=== PATIENT | female | born 1970 | race Hispanic/Latino ===

== ENCOUNTER 2019-06-06 18:11 | Emergency (ER) | payer OTHER ==
--- NOTE | 2019-06-06 23:35 | Emergency Department Report ---
[facility] Chief Complaint: Eye Problems Stated Complaint: RT EYE INFECTION Time Seen by Provider: 06/06/19 23:15 Duration: 4 Days Side: Right Severity: moderate Symptoms: Yes Eye Itching, Yes Eye Redness, Yes Purulent Drainage, No Eye Pain, No Blurred Vision, No Preceding URI, No H/O Allergic Rhinitis, No Contact Lens Use, No Trauma, No Fever, No Headache Other History: 49-year-old female presents to the emergency room complaining of right eye swelling and itchiness that started on Wednesday. Patient states that his increased swelling to the area with redness. Patient states his mouth. When discharge. Patient also complains of a rash on her face. Patient complains of a headache and blood pressure in triage is 167/100. Patient states that she is only on lisinopril. Patient is currently in custody. ED Review of Systems ROS: Stated complaint: RT EYE INFECTION Other details as noted in HPI Comment: All other systems reviewed and negative ED Past Medical Hx - Social History Smoking Status: Current Every Day Smoker Substance Use Type: Alcohol, Marijuana - Medications Home Medications: Home Medications Medication Instructions Recorded Confirmed Last Taken Type Erythromycin [Erythromycin Ophth 1 strip OD QID 10 Days #1 tube 06/06/19 Unknown Rx Oint] Hydrocortisone 0.5% 1 applicatio TP TID #1 tube 06/06/19 Unknown Rx [Hydrocortisone 0.5% CREAM] amLODIPine 5 mg PO DAILY #30 tab 06/06/[address] [facility] Exam - Exam General: Vital signs noted. No distress. Alert and acting appropriately. Eye Exam: Right Injection, Right EOMI, Right Purulent Discharge, Neither Photophobia HEENT: No Nasal Congestion, No Pharyngeal Erythema Exam: Rash erythematous scaly on the right upper forehead to the scalp. ED Course Vital Signs 06/06/19 06/06/19 20:01 20:04 Temperature 98.2 F 98.2 F Pulse Rate 94 H 94 H Respiratory 18 18 Rate Blood Pressure 167/100 167/100 O2 Sat by Pulse 97 97 Oximetry ED Medical Decision Making - Medical Decision Making 49-year-old female presents to the emergency room complaining of right eye swelling and itchiness that started on Wednesday. Patient states that his increased swelling to the area with redness. Patient states his mouth. When discharge. Patient also complains of a rash on her face. Patient complains of a headache and blood pressure in triage is 167/100. Patient states that she is only on lisinopril. Patient is currently in custody. Patient will be discharged home on erythromycin ophthalmic ointment and hydrocortisone 0.5% to apply on rash. Patient also be discharged on amlodipine 5 mg daily and to follow-up with medical unit at her facility. Critical care attestation.: If time is entered above; I have spent that time in minutes in the direct care of this critically ill patient, excluding procedure time. ED Disposition Clinical Impression: Rash Conjunctivitis Qualifiers: Conjunctivitis type: acute Acute conjunctivitis type: unspecified Laterality: right Qualified Code(s): H10.31 - Unspecified acute conjunctivitis, right eye Hypertension Qualifiers: Hypertension type: unspecified Qualified Code(s): I10 - Essential (primary) hypertension Disposition: DC- TO HOME OR SELFCARE Is pt being admited?: No Does the pt Need Aspirin: No Condition: Stable Instructions: Hypertension (ED), Contact Dermatitis (ED), Conjunctivitis (ED) Prescriptions: amLODIPine 5 mg PO DAILY #30 tab Erythromycin [Erythromycin Ophth Oint] 1 strip OD QID 10 Days #1 tube Hydrocortisone 0.5% [Hydrocortisone 0.5% CREAM] 1 applicatio TP TID #1 tube Referrals: PRIMARY CARE, [Primary Care Provider] - 3-5 Days
[2019-06-07 00:27] VITALS: BP 172/90
== END 2019-06-06 23:50 | disposition home or self-care (01) ==
LOC: ED 18:11
DX: R21 Rash and other nonspecific skin eruption (principal); H10.9 Unspecified conjunctivitis; I10 Essential (primary) hypertension; F17.200 Nicotine dependence, unspecified, uncomplicated; F12.10 Cannabis abuse, uncomplicated; Z79.899 Other long term (current) drug therapy
CPT/HCPCS: 99282